=== PATIENT | female | born 1990 | race Caucasian/White ===

== ENCOUNTER 2019-08-24 04:13 | Inpatient (IN) | payer MEDICAID ==
[2019-08-24] MEDS ORDERED: Morphine PF 10 MG/10 ML SDV ONE (06:41)
[2019-08-24] MEDS ORDERED: Oxytocin 10 Units/1 ML SDV ONE (06:48)
[2019-08-24] MEDS ORDERED: Phenylephrine 1% 10 MG/ML SDV ONE (06:48)
[2019-08-24] MEDS ORDERED: Ondansetron 4 MG/2 ML SDV ONE (06:51)
[2019-08-24] MEDS ORDERED: Ketorolac 30 MG/ML SDV ONE (06:51)
[2019-08-24] MEDS ORDERED: ceFAZolin 1 GM Vial ONE (07:11)
[2019-08-24] MEDS ORDERED: Glycopyrrolate 0.2 MG/ML SDV ONE (07:51)
--- NOTE | 2019-08-24 08:09 | PCM.PREANE ---
Preanesthetic Assessment - Anesthesia/Transfusion/Family Hx Anesthesia History: Prior Anesthesia Without Reaction Family History of Anesthesia Reaction: No Transfusion History: No Prior Transfusion(s) Intubation History: Unknown - Review of Systems General: No Symptoms Pulmonary: No Symptoms Cardiovascular: No Symptoms Gastrointestinal: No Symptoms Neurological: No Symptoms Other: Reports: None - Physical Assessment Height: 5 ft 3 in Weight: 63.503 kg ASA Class: 2 Mental Status: Alert & Oriented x3 Airway Class: Mallampati = 2 Dentition: Reports: Normal Dentition Thyro-Mental Finger Breadths: 3 Mouth Opening Finger Breadths: 3 ROM/Head Extension: Full Lungs: Clear to Auscultation, Normal Respiratory Effort Cardiovascular: Regular Rate, Regular Rhythm - Lab Values: Laboratory Last Values WBC 12.39 K/uL (4.0-11.0) H 08/23/19 09:25 RBC 3.70 M/uL (4.30-5.90) L 08/23/19 09:25 Hgb 10.6 g/dL (12.0-16.0) L 08/23/19 09:25 Hct 33.3 % (36.0-46.0) L 08/23/19 09:25 MCV 90.0 fL (80.0-98.0) 08/23/19 09:25 MCH 28.6 pg (27.0-32.0) 08/23/19 09:25 MCHC 31.8 g/dL (31.0-37.0) 08/23/19 09:25 RDW Std Deviation 48.6 fl (28.0-62.0) 08/23/19 09:25 RDW Coeff of Vandana 15 % (11.0-15.0) 08/23/19 09:25 Plt Count 245 K/uL (150-400) 08/23/19 09:25 MPV 10.90 fL (7.40-12.00) 08/23/19 09:25 Nucleated RBC % 0.0 /100WBC 08/23/19 09:25 Nucleated RBCs # 0 K/uL 08/23/19 09:25 Blood Type AB POSITIVE 08/23/19 09:25 Antibody Screen NEGATIVE 08/23/19 09:25 - Allergies Allergies/Adverse Reactions: Allergies Allergy/AdvReac Type Severity Reaction Status Date / Time No Known Allergies Allergy Verified 08/18/19 10:50 - Blood Blood Available: No - Anesthesia Plan Pre-Op Medication Ordered: None - Acknowledgements Anesthesia Type Planned: Spinal Pt an Appropriate Candidate for the Planned Anesthesia: Yes Alternatives and Risks of Anesthesia Discussed w Pt/Guardian: Yes Pt/Guardian Understands and Agrees with Anesthesia Plan: Yes PreAnesthesia Questionnaire HEENT History: Reports: Other (See Below) Other HEENT History: wears glasses Cardiovascular History: Reports: None Respiratory History: Reports: Asthma (mild) Gastrointestinal History: Reports: GERD, Other (See Below) Other Gastrointestinal History: heartburn with , hx gastric ulcer Genitourinary History: Reports: None [employer]OR History: Reports: Musculoskeletal History: Reports: None Neurological History: Reports: None Psychiatric History: Reports: None Endocrine/Metabolic History: Reports: None Hematologic History: Reports: None Immunologic History: Reports: None Oncologic (Cancer) History: Reports: None Dermatologic History: Reports: None - Past Surgical History Head Surgeries/Procedures: Reports: None HEENT Surgical History: Reports: Adenoidectomy, Naso-Sinus Surgery, Tonsillectomy Other HEENT Surgeries/Procedures: surgery for deviated septum Cardiovascular Surgical History: Reports: None Respiratory Surgical History: Reports: None GI Surgical History: Reports: EGD Female Surgical History: Reports: None Endocrine Surgical History: Reports: None Neurological Surgical History: Reports: None Musculoskeletal Surgical History: Reports: None Oncologic Surgical History: Reports: None Dermatological Surgical History: Reports: Other (See Below) (mole excision) - SUBSTANCE USE Smoking Status *Q: Former Smoker Tobacco Use Within Last Twelve Months: No - HOME MEDS Home Medications: Home Meds Albuterol Sulfate [Albuterol Sulfate Hfa] 1 - 2 puff INH ASDIRECTED PRN 08/18/19 [History] Ascorbic Acid [Vitamin C] 500 mg PO DAILY 08/18/19 [History] Aspirin [Adult Aspirin Regimen] 81 mg PO DAILY 08/18/19 [History] Docusate Sodium [Stool Softener] 1 tab PO DAILY 08/18/19 [History] Iron 65 mg PO DAILY 08/18/19 [History] Omeprazole Magnesium [Prilosec Otc] 20 mg PO DAILY 08/18/19 [History] Ondansetron [Zofran] 4 mg PO ASDIRECTED PRN 08/18/19 [History] Pnv No.95/Ferrous Fum/Folic AC [ Vitamin Tablet] 1 tab PO DAILY 08/18/19 [History] polyethylene glycoL 3350 [MiraLAX] 1 dose PO ASDIRECTED PRN 08/18/19 [History]
[2019-08-24] MEDS ORDERED: Lanolin 100% Cream 7 GM Tube TOP PRN (08:15)
[2019-08-24] MEDS ORDERED: Oxytocin 10 Units/1 ML SDV IM PRN (08:15)
[2019-08-24] MEDS ORDERED: Bisacodyl 10 MG Supp RECTAL PRN (08:15)
[2019-08-24] MEDS ORDERED: diphenhydrAMINE 50 MG/ML SDV IVPUSH PRN ×2 (08:15→08:23)
[2019-08-24] MEDS ORDERED: Misoprostol 200 MCG Tab RECTAL PRN (08:15)
[2019-08-24] MEDS ORDERED: Methylergonovine 0.2 MG/1 ML Amp IM PRN (08:15)
[2019-08-24] MEDS ORDERED: Tranexamic Acid 1,000 MG in Sodium Chloride 0.9% 100 ML IV PRN (08:15)
[2019-08-24] MEDS ORDERED: Ondansetron 4 MG/2 ML SDV IVPUSH PRN ×2 (08:15→08:23)
[2019-08-24] MEDS ORDERED: Nalbuphine 10 MG/1 ML Vial IVPUSH PRN (08:23)
[2019-08-24] MEDS ORDERED: Acetaminophen/oxyCODONE 325-5 MG Tab PO PRN (08:23)
[2019-08-24] MEDS ORDERED: fentaNYL 100 MCG/2 ML SDV IVPUSH PRN (08:23)
[2019-08-24] MEDS ORDERED: Naloxone 0.4 MG/ML Syringe IVPUSH PRN (08:23)
--- NOTE | 2019-08-24 08:27 | PCM.OPNOTE ---
- General Post-Op/Procedure Note Date of Surgery/Procedure: 08/24/19 Operative Procedure(s): Primary LTCS Findings: Viable twin A female APGARs 8, 9 weight 2370 gm, clear amniotic fluid cephalic Viable twin B female APGARs 8, 9 weight 2320 gm, clear amniotic fluid footling breech Pre Op Diagnosis: 36 week monochorionic, diamniotic twin gestation. Cephalic/breech presentation Post-Op Diagnosis: Same Anesthesia Technique: Spinal Primary Surgeon: Chelita Mckinney Benefits Consultant: Brisa Yarbrough Fluid Replacement, Intraop: 800 EBL in mLs: 600 Complications: none known Condition: Stable Free Text/Narrative:: Dictation [id number]
[2019-08-24] MEDS: Lactated Ringers 1,000 ML IV SCH ×2 (09:07→17:16)
--- NOTE | 2019-08-24 09:31 | PCM.POSTAN ---
POST ANESTHESIA ASSESSMENT - MENTAL STATUS Mental Status: Alert, Oriented - RESPIRATORY Respiratory Status: Respiratory Rate WNL, Airway Patent, O2 Saturation Stable - CARDIOVASCULAR CV Status: Pulse Rate WNL, Blood Pressure Stable - GASTROINTESTINAL GI Status: No Symptoms - PAIN Pain Score: 0 - POST OP HYDRATION Hydration Status: Adequate & Stable - OBSERVATIONS Free Text/Narrative:: No anesthesia complications or concerns noted.
[2019-08-24] MEDS: Docusate Sodium 100 MG Cap PO SCH ×2 (10:58→20:45)
[2019-08-24] MEDS: Ketorolac 30 MG/ML SDV IVPUSH SCH ×3 (10:58→20:43)
[2019-08-24] MEDS: Simethicone 80 MG Tab.Chew PO SCH ×2 (12:08→18:20)
--- NOTE | 2019-08-24 15:20 | OR ---
SURGEON: Chelita Mckinney M.D. DATE OF PROCEDURE: 08/24/2019 PREOPERATIVE DIAGNOSES: 1. A 36-week monochorionic diamniotic twin gestation. 2. Cephalic breech presentation. POSTOPERATIVE DIAGNOSES: 1. A 36-week monochorionic diamniotic twin gestation. 2. Cephalic breech presentation. PROCEDURE: Primary low transverse section. PRIMARY SURGEON: Chelita Mckinney MD ANESTHESIA: Spinal. ESTIMATED BLOOD LOSS: 600 mL. FLUIDS: 800 mL of crystalloid. COMPLICATIONS: None known. FINDINGS: Viable female twin A; score of 8 at one minute and 9 at five minutes, weight of 2370 g, cephalic presentation. Next, viable female twin B; score of 8 at one minute and 9 at five minutes, weight of 2320 g, footling breech presentation. Monochorionic diamniotic appearing placenta. DISPOSITION: The patient to PACU, stable. Infants to nursery. Placenta to pathology. PROCEDURE IN DETAIL: Jackelin is a 28-year-old female who has monochorionic diamniotic twin gestation and has opted to proceed with a primary delivery due to malpresentation of twin B. Risks of procedure have been discussed with her. Proper consent obtained. The patient was taken to the operating room where she underwent spinal anesthetic, was then placed in dorsal supine position with leftward tilt. SCDs to lower extremity. Moffett to gravity. Was prepped and draped in usual sterile fashion. Received Ancef prophylactically. Time-out was performed. Anesthesia was tested, found to be adequate. A Pfannenstiel incision was created, carried down to level of the rectus fascia, which was incised in the midline, lateralized on either side sharply and bluntly. The superior aspect of fascia was tented upward, dissected sharply and bluntly away from underlying muscle. In similar aspect, performed the inferior aspect of the fascia. Rectus muscle and peritoneum were in the midline. Peritoneum was entered sharply. Rectus muscle and peritoneum were now lateralized bluntly. Uterine position and position palpated. Self-retaining tractor gently placed. Uterovesical reflection was visualized. Bladder flap was created sharply and bluntly. The bladder was mobilized away from the lower uterine segment. Low transverse hysterotomy was performed. Uterine cavity was entered with blunt- ended scalpel. Amniotomy was performed for twin A, clear fluid was returned. The infant's head was flexed, fundal pressure was applied. The 's head was delivered followed by anterior shoulder, posterior shoulder, and the remainder of the body without difficulty. The infant's oropharynx and nares were bulb suctioned. Cord was clamped x2 and cut. Infant was handed off to attending nursery staff. Twin B was presenting in footling breech presentation. Amniotomy was performed. Right foot was delivered followed by left foot. Buttocks, trunk, and then left upper extremity, right upper extremity, and head was flexed and delivered. The 's oropharynx and nares were bulb suctioned. Cord was clamped x2 and cut. Infant was handed off to attending nursery staff. Cord arterial, cord venous, cord blood sampling for each of the cord was obtained. The placenta was now delivered, will be sent to pathology for further analysis. Uterine cavity was cleared of all clots and debris. Hysterotomy repaired using 0 Vicryl in continuous running locked fashion. Area of bleeding with the left uterine artery was noted. This was plicated with a figure-of- eight suture, hemostasis thereafter evident. A re-imbricating layer was now placed along the hysterotomy with 0 Vicryl. Posterior aspect of the uterus was inspected, no defects or hematomas found be forming. Region was well irrigated and suction dried. Colonic gutters were cleared of all clot and debris, well irrigated and suction dried. Hysterotomy once again inspected. Any areas of serosal oozing were cauterized. Hemostasis appeared evident. Self-retaining retractor now removed. Hysterotomy once again inspected, found to be hemostatic. Rectus muscle and peritoneum were now reapproximated using 0 Vicryl with inverted mattress suture technique. Anterior aspect of the muscle, posterior aspect of the fascia closely inspected, any areas of oozing were cauterized. The rectus fascia layer was now closed using 0 Vicryl in continuous running fashion, beginning laterally on either side, meeting in the midline. Subcutaneous tissue was well irrigated and suction dried, any areas of oozing were cauterized. Skin edges reapproximated using 3-0 Vicryl on a Henrique needle in subcuticular fashion followed by half-inch Steri-Strips and Mastisol. Sponge, instrument, and needle count was correct x2. The patient tolerated the procedure well overall. She will go to PACU in stable condition, infants to nursery. MAYELIN / RM /[id number]
[2019-08-25] MEDS: Simethicone 80 MG Tab.Chew PO SCH ×5 (01:02→23:22)
[2019-08-25] MEDS: Ketorolac 30 MG/ML SDV IVPUSH SCH ×2 (02:13→08:30)
[2019-08-25] MEDS ORDERED: Acetaminophen/oxyCODONE 325-5 MG Tab PO ONE (07:01)
[2019-08-25] MEDS: Acetaminophen/oxyCODONE 325-5 MG Tab PO PRN ×4 (07:22→23:22)
[2019-08-25] MEDS: Docusate Sodium 100 MG Cap PO SCH ×2 (08:15→22:02)
--- NOTE | 2019-08-25 08:15 | PCM48HPAN ---
Post Anesthesia Note - EVALUATION WITHIN 48HRS OF ANESTHETIC Vital Signs in Normal Range: Yes Patient Participated in Evaluation: Yes Respiratory Function Stable: Yes Airway Patent: Yes Cardiovascular Function Stable: Yes Hydration Status Stable: Yes Pain Control Satisfactory: Yes Nausea and Vomiting Control Satisfactory: Yes Mental Status Recovered: Yes Vital Signs: Last Vital Signs Temp 36.1 C 08/25/19 04:00 Pulse 76 08/25/19 07:00 Resp 16 08/25/19 07:00 BP 110/56 L 08/25/19 04:00 Pulse Ox 98 08/25/19 07:00 - COMMENTS/OBSERVATIONS Free Text/Narrative:: No anesthesia complications or concerns noted.
--- NOTE | 2019-08-25 09:48 | PCM.PNPP ---
- General Info Date of Service: 08/25/19 Functional Status: Reports: Pain Controlled, Tolerating Diet, Ambulating - Review of Systems General: Reports: Fatigue. Denies: Fever, Weakness Pulmonary: Reports: No Symptoms Cardiovascular: Reports: No Symptoms Gastrointestinal: Reports: Abdominal Pain (incisiona, just took oral pain med). Denies: Nausea, Vomiting Genitourinary: Reports: No Symptoms Musculoskeletal: Reports: No Symptoms Skin: Reports: No Symptoms Neurological: Reports: No Symptoms Psychiatric: Reports: No Symptoms - General Info Date of Service: 08/25/19 - Patient Data Vital Signs - Most Recent: Last Vital Signs Temp 36.1 C 08/25/19 04:00 Pulse 76 08/25/19 07:00 Resp 16 08/25/19 07:00 BP 110/56 L 08/25/19 04:00 Pulse Ox 98 08/25/19 07:00 Weight - Most Recent: 63.503 kg I&O - Last 24 Hours: Intake & Output 08/24/19 08/25/19 08/25/19 22:59 06:59 14:59 Intake Total 898 1500 Output Total 350 1800 Balance 548 -300 Lab Results - Last 24 Hours: Laboratory Results - last 24 hr 08/25/19 Range/Units 05:40 Hgb 10.1 L (12.0-16.0) g/dL Hct 32.4 L (36.0-46.0) % Med Orders - Current: Current Medications Bisacodyl (Dulcolax) 10 mg RECTAL ONETIME PRN PRN Reason: Constipation Diphenhydramine HCl (Benadryl) 25 mg IVPUSH Q6H PRN PRN Reason: Itching or Nausea Docusate Sodium (Colace) 100 mg PO BID [facility] Last Admin: 08/24/19 20:45 Dose: 100 mg Documented by: Emollient Ointment (Lansinoh Hpa) 0 gm TOP ASDIRECTED PRN PRN Reason: Sore Nipples Last Admin: 08/24/19 11:59 Dose: 7 gm Documented by: Fentanyl (Sublimaze) 50 mcg IVPUSH Q1H PRN PRN Reason: Pain (severe 7-10) Lactated Ringer's (Ringers, Lactated) 1,000 mls @ 125 mls/hr IV ASDIRECTED [facility] Last Admin: 08/24/19 17:16 Dose: 125 mls/hr Documented by: Tranexamic Acid 1,000 mg/ (Sodium Chloride) 110 mls @ 660 mls/hr IV ONETIME PRN PRN Reason: Bleeding Ibuprofen (Motrin) 800 mg PO Q8H PRN PRN Reason: mild pain or fever Methylergonovine Maleate (Methergine) 0.2 mg IM ONETIME PRN PRN Reason: Excessive Vaginal Bleeding Misoprostol (Cytotec) 1,000 mcg RECTAL ONETIME PRN PRN Reason: excessive bleeding Nalbuphine HCl (Nubain) 5 mg IVPUSH ASDIRECTED PRN PRN Reason: Itching Last Admin: 08/24/19 19:46 Dose: 5 mg Documented by: Ondansetron HCl (Zofran) 4 mg IVPUSH Q4H PRN PRN Reason: Nausea/Vomiting Last Admin: 08/24/19 11:59 Dose: 4 mg Documented by: Ondansetron HCl (Zofran) 4 mg IVPUSH Q6H PRN PRN Reason: Nausea Oxycodone/Acetaminophen (Percocet 325-5 Mg) 1 tab PO Q4H PRN PRN Reason: Pain (moderate 4-6) Oxycodone/Acetaminophen (Percocet 325-5 Mg) 2 tab PO Q4H PRN PRN Reason: Pain (moderate 4-6) Last Admin: 08/25/19 07:22 Dose: 2 tab Documented by: Oxycodone/Acetaminophen (Percocet 325-5 Mg) 2 tab PO Q6H PRN PRN Reason: Pain (moderate 4-6) Oxytocin (Pitocin) 10 unit IM ASDIRECTED PRN PRN Reason: Excessive Vaginal Bleeding Simethicone (Simethicone) 160 mg PO QID [facility] Last Admin: 08/25/19 07:09 Dose: 160 mg Documented by: Discontinued Medications Cefazolin Sodium (Ancef) Confirm Administered Dose 1 gm .ROUTE .STK-MED ONE Stop: 08/24/19 07:12 Diphenhydramine HCl (Benadryl) 25 mg IVPUSH Q4H PRN PRN Reason: Itching Stop: 08/25/19 08:23 Glycopyrrolate (Robinul) Confirm Administered Dose 0.2 mg .ROUTE .STK-MED ONE Stop: 08/24/19 07:52 Ketorolac Tromethamine (Toradol) 30 mg IVPUSH Q6H [facility] Stop: 08/25/19 08:16 Last Admin: 08/25/19 08:30 Dose: 30 mg Documented by: Ketorolac Tromethamine (Toradol) Confirm Administered Dose 30 mg .ROUTE .STK-MED ONE Stop: 08/24/19 06:52 Morphine Sulfate (Duramorph Pf) Confirm Administered Dose 10 mg .ROUTE .STK-MED ONE Stop: 08/24/19 06:42 Naloxone HCl (Narcan) 0.1 mg IVPUSH ONETIME PRN PRN Reason: Respiratory Depression Stop: 08/25/19 08:23 Ondansetron HCl (Zofran) Confirm Administered Dose 4 mg .ROUTE .STK-MED ONE Stop: 08/24/19 06:52 Oxycodone/Acetaminophen (Percocet 325-5 Mg) 1 tab PO ONETIME ONE Stop: 08/25/19 07:02 Oxytocin (Pitocin) Confirm Administered Dose 40 unit .ROUTE .STK-MED ONE Stop: 08/24/19 06:49 Phenylephrine HCl (Jeremy-Synephrine) Confirm Administered Dose 10 mg .ROUTE .STK- MED ONE Stop: 08/24/19 06:49 - Recovery Exam Fundal Tone: Firm Fundal Level: 1 Fingerbreadths Below Umbilicus Fundal Placement: Midline Lochia Amount: Scant Lochia Color: Rubra/Red Perineum Description: Intact, Minimal Bruising/Swelling Episiotomy/Laceration: None Bladder Status: Indwelling Catheter in Place Urinary Elimination: Indwelling Catheter - Problem List & Annotations (1) Twin delivery by SNOMED Code(s): 753166455, 521879288 Code(s): O30.009 - TWIN , UNSP NUM PLCNTA & AMNIO SACS, UNSP TRIMESTER Status: Acute Current Visit: Yes - Problem List Review Problem List Initiated/Reviewed/Updated: Yes - My Orders Last 24 Hours: My Active Orders 08/24/19 09:00 Docusate Sodium [Colace] 100 mg PO BID 08/24/19 Lunch Regular Diet [DIET] 08/24/19 12:00 Simethicone 160 mg PO QID - Assessment Assessment:: POD 1 status post primary LTCS for mono/di twin, with malpresentation twin B - Plan Plan:: Tired--but otherwise doing well overall. Pain is controlled overall. She just had catheter removed. Working with . Continue postoperative cares.
[2019-08-25] MEDS: Ibuprofen 800 MG Tab PO PRN (14:19)
[2019-08-26] MEDS: Acetaminophen/oxyCODONE 325-5 MG Tab PO PRN ×2 (03:36→09:29)
[2019-08-26] MEDS: Ibuprofen 800 MG Tab PO PRN (07:40)
[2019-08-26] MEDS: Simethicone 80 MG Tab.Chew PO SCH (07:41)
--- NOTE | 2019-08-26 08:46 | PCM.PNPP ---
- General Info Date of Service: 08/26/19 Functional Status: Reports: Pain Controlled, Tolerating Diet, Ambulating, Urinating - Review of Systems General: Reports: Fatigue. Denies: Fever, Weakness Pulmonary: Denies: Shortness of Breath Cardiovascular: Denies: Chest Pain, Palpitations, Lightheadedness Gastrointestinal: Denies: Abdominal Pain, Nausea, Vomiting Genitourinary: Denies: Flank Pain Musculoskeletal: Reports: No Symptoms Skin: Reports: No Symptoms Neurological: Reports: No Symptoms Psychiatric: Reports: No Symptoms - General Info Date of Service: 08/26/19 - Patient Data Vital Signs - Most Recent: Last Vital Signs Temp 35.9 C L 08/26/19 07:50 Pulse 84 08/26/19 07:50 Resp 17 08/26/19 07:50 BP 107/65 08/26/19 07:50 Pulse Ox 99 08/26/19 07:50 Weight - Most Recent: 63.503 kg Med Orders - Current: Current Medications Bisacodyl (Dulcolax) 10 mg RECTAL ONETIME PRN PRN Reason: Constipation Diphenhydramine HCl (Benadryl) 25 mg IVPUSH Q6H PRN PRN Reason: Itching or Nausea Docusate Sodium (Colace) 100 mg PO BID [facility] Last Admin: 08/25/19 22:02 Dose: 100 mg Documented by: Emollient Ointment (Lansinoh Hpa) 0 gm TOP ASDIRECTED PRN PRN Reason: Sore Nipples Last Admin: 08/24/19 11:59 Dose: 7 gm Documented by: Fentanyl (Sublimaze) 50 mcg IVPUSH Q1H PRN PRN Reason: Pain (severe 7-10) Lactated Ringer's (Ringers, Lactated) 1,000 mls @ 125 mls/hr IV ASDIRECTED [facility] Last Admin: 08/24/19 17:16 Dose: 125 mls/hr Documented by: Tranexamic Acid 1,000 mg/ (Sodium Chloride) 110 mls @ 660 mls/hr IV ONETIME PRN PRN Reason: Bleeding Ibuprofen (Motrin) 800 mg PO Q8H PRN PRN Reason: mild pain or fever Last Admin: 08/26/19 07:40 Dose: 800 mg Documented by: Methylergonovine Maleate (Methergine) 0.2 mg IM ONETIME PRN PRN Reason: Excessive Vaginal Bleeding Misoprostol (Cytotec) 1,000 mcg RECTAL ONETIME PRN PRN Reason: excessive bleeding Nalbuphine HCl (Nubain) 5 mg IVPUSH ASDIRECTED PRN PRN Reason: Itching Last Admin: 08/24/19 19:46 Dose: 5 mg Documented by: Ondansetron HCl (Zofran) 4 mg IVPUSH Q4H PRN PRN Reason: Nausea/Vomiting Last Admin: 08/24/19 11:59 Dose: 4 mg Documented by: Ondansetron HCl (Zofran) 4 mg IVPUSH Q6H PRN PRN Reason: Nausea Oxycodone/Acetaminophen (Percocet 325-5 Mg) 1 tab PO Q4H PRN PRN Reason: Pain (moderate 4-6) Last Admin: 08/25/19 23:22 Dose: 1 tab Documented by: Oxycodone/Acetaminophen (Percocet 325-5 Mg) 2 tab PO Q4H PRN PRN Reason: Pain (moderate 4-6) Last Admin: 08/26/19 03:36 Dose: 2 tab Documented by: Oxycodone/Acetaminophen (Percocet 325-5 Mg) 2 tab PO Q6H PRN PRN Reason: Pain (moderate 4-6) Oxytocin (Pitocin) 10 unit IM ASDIRECTED PRN PRN Reason: Excessive Vaginal Bleeding Simethicone (Simethicone) 160 mg PO QID [facility] Last Admin: 08/26/19 07:41 Dose: 160 mg Documented by: Discontinued Medications Cefazolin Sodium (Ancef) Confirm Administered Dose 1 gm .ROUTE .STK-MED ONE Stop: 08/24/19 07:12 Diphenhydramine HCl (Benadryl) 25 mg IVPUSH Q4H PRN PRN Reason: Itching Stop: 08/25/19 08:23 Glycopyrrolate (Robinul) Confirm Administered Dose 0.2 mg .ROUTE .STK-MED ONE Stop: 08/24/19 07:52 Ketorolac Tromethamine (Toradol) 30 mg IVPUSH Q6H [facility] Stop: 08/25/19 08:16 Last Admin: 08/25/19 08:30 Dose: 30 mg Documented by: Ketorolac Tromethamine (Toradol) Confirm Administered Dose 30 mg .ROUTE .STK-MED ONE Stop: 08/24/19 06:52 Morphine Sulfate (Duramorph Pf) Confirm Administered Dose 10 mg .ROUTE .STK-MED ONE Stop: 08/24/19 06:42 Naloxone HCl (Narcan) 0.1 mg IVPUSH ONETIME PRN PRN Reason: Respiratory Depression Stop: 08/25/19 08:23 Ondansetron HCl (Zofran) Confirm Administered Dose 4 mg .ROUTE .STK-MED ONE Stop: 08/24/19 06:52 Oxycodone/Acetaminophen (Percocet 325-5 Mg) 1 tab PO ONETIME ONE Stop: 08/25/19 07:02 Oxytocin (Pitocin) Confirm Administered Dose 40 unit .ROUTE .STK-MED ONE Stop: 08/24/19 06:49 Phenylephrine HCl (Jeremy-Synephrine) Confirm Administered Dose 10 mg .ROUTE .STK- MED ONE Stop: 08/24/19 06:49 - Recovery Exam Fundal Tone: Firm Fundal Level: 1 Fingerbreadths Below Umbilicus Fundal Placement: Midline Lochia Amount: Scant Lochia Color: Rubra/Red Perineum Description: Intact, Minimal Bruising/Swelling Episiotomy/Laceration: None Bladder Status: Voiding Urinary Elimination: Indwelling Catheter Other Urinary Elimination, : Moffett catheter removed 0645, no post void yet - Exam General: Alert, Oriented Lungs: Normal Respiratory Effort Cardiovascular: Regular Rate, Regular Rhythm GI/Abdominal Exam: Normal Bowel Sounds, Soft. No: Guarding Extremities: Pedal Edema (trace). No: Diego's Sign Skin: Warm, Dry, Intact Wound/Incisions: Healing Well, No Drainage. No: Erythema Neurological: No New Focal Deficit Psy/Mental Status: Alert, Normal Affect, Normal Mood - Problem List & Annotations (1) Twin delivery by SNOMED Code(s): 784478445, 903941844 Code(s): O30.009 - TWIN , UNSP NUM PLCNTA & AMNIO SACS, UNSP TRIMESTER Status: Acute Current Visit: Yes - Problem List Review Problem List Initiated/Reviewed/Updated: Yes - My Orders Last 24 Hours: My Active Orders 08/26/19 08:43 Ready for Discharge [RC] PER UNIT ROUTINE - Assessment Assessment:: POD 2 status post primary LTCS for mono/di twin, with malpresentation twin B - Plan Plan:: patient is doing well overall. going well. Would like to go home today. Discharge instructions reviewed. Follow up at [facility] 2 and 6 weeks. Discharge to home if twins able to be discharged.
[2019-08-26] MEDS: Docusate Sodium 100 MG Cap PO SCH (09:28)
== END 2019-08-26 11:20 | disposition home or self-care (01) | DRG 786 ==
LOC: MW.OB 04:13
PROVIDERS: ADMIT Obstetrics & Gynecology; ATTEND Obstetrics & Gynecology
PROC: 10D00Z1 Extraction of Products of Conception, Low, Open Approach (ICD-10-PCS; principal; 2019-08-24)
DX: O30.033 Twin pregnancy, monochorionic/diamniotic, third trimester (principal); O60.14X2 Preterm labor third trimester with preterm delivery third trimester, fetus 2; Z3A.36 36 weeks gestation of pregnancy; Z37.2 Twins, both liveborn
CPT/HCPCS: 36415; 51702; 59025; 82803; 85014; 85018; 85027; 86850; 86900; 86901; 88307; A9270-GY; J0690; J1885; J2270; J2300; J2370; J2405; J2590; J3490; J7120